=== PATIENT | female | born 1995 ===

== ENCOUNTER 2016-06-14 10:11 | Observation (INO) | payer MEDICAID ==
--- NOTE | 2016-06-14 11:39 | GHP ---
[f rep st] HISTORY AND PHYSICAL DATE OF ADMISSION: 06/14/2016 ADMITTING DIAGNOSES: 1. Intrauterine at 30 weeks. 2. Leakage of fluid. HISTORY OF PRESENT ILLNESS: Patient is a 20-year-old, 1, para 0, at 30 weeks with estimated due date 08/18/2016, by a first-trimester ultrasound at 7 1 /7 weeks per patient. The patient receives her care at [facility] , but is unhappy with her care and wants to transfer care to [place] and deliver here at [facility]. The patient presents with complaints of leakage of fluid. Yesterday morning, she noticed a gush of clear fluid, no odor and had trickling throughout the day. She did not notice anything at night, but when she woke up this morning, she felt a little damp. She is having some menstrual- type cramping. Denies any vaginal bleeding or spotting. Good movement noted. The patient states she had intercourse 3-4 days ago. She is currently being treated for an UTI. The patient has seen perinatology in this secondary to oligohydramnios that was diagnosed 1-2 weeks ago. The patient is to have twice weekly NSTs and a followup ultrasound. I do not have access to her records at this time. PROFESSIONAL SYSTEM ADMINISTRATOR HISTORY: Menstrual cycles are irregular. Denies any history of abnormal Pap smears, or any exposure to sexually transmitted diseases. OBSTETRIC HISTORY: Primiparous. PAST MEDICAL HISTORY: Unremarkable. SURGICAL HISTORY: In October 2015, she had a laparoscopic ovarian cystectomy. CURRENT MEDICATIONS: Keflex and vitamins. ALLERGIES: No known drug allergies. SOCIAL HISTORY: She is . Lives with her . Denies any alcohol, tobacco, or illicit drug use. FAMILY HISTORY: Noncontributory. PHYSICAL EXAMINATION: VITAL SIGNS: On admission, vital signs are stable. Temp 37.2, heart rate 86, and blood pressure 125/83. GENERAL: Well-nourished, well-developed female, alert and oriented x3, no apparent distress. ABDOMEN: Gravid, soft, nontender. EXTREMITIES: Normal to inspection without tenderness. No edema. PELVIC EXAM: AmniSure was collected. There was no pooling or gross rupture noted. Cervical check deferred. heart tones were Category I tracing with a baseline of 140 beats per minute. Positive accels. No decelerations. Moderate variability. On toco, there is some uterine irritability, but no contractions. ASSESSMENT: The patient is a 20-year-old, 1, para 0, at 30 weeks with estimated due date 08/18/16, who presents with complaints of leaking fluid, here to rule out rupture of membranes. PLAN: 1. Admit to Labor and Delivery for observation. 2. AmniSure sent, collected and sent. 3. Will obtain an ultrasound for growth and LEYLA check. 4. Discussed with patient if she wants to deliver here, she needs to transfer care. Patient given my information. She is to call my office tomorrow morning and set up an appointment for initial OB, and she is to sign a record release so we are able to get her records. /[id number]/MODL MTDD
== END 2016-06-14 14:00 | disposition home or self-care (01) ==
LOC: FLD 10:11
PROVIDERS: ADMIT Obstetrics & Gynecology; ATTEND Obstetrics & Gynecology
DX: O42.913 Preterm premature rupture of membranes, unspecified as to length of time between rupture and onset of labor, third trimester (principal); O08.83 Urinary tract infection following an ectopic and molar pregnancy; O41.03X0 Oligohydramnios, third trimester, not applicable or unspecified; Z3A.30 30 weeks gestation of pregnancy
CPT/HCPCS: 76815; G0378

== ENCOUNTER 2016-07-21 16:35 | Inpatient (IN) | payer MEDICAID ==
[2016-07-21] MEDS: LR 1,000 ML IV PRN ×2 (16:50→18:28)
[2016-07-21] MEDS ORDERED: OLIVE OIL 118 ML BTL MISC PRN (17:12)
[2016-07-21] MEDS ORDERED: EPSOM SALT 454 GM TP PRN (17:12)
[2016-07-21] MEDS ORDERED: OXYTOCIN/RINGERS LACTATE 1,000 ML IV PRN (17:12)
[2016-07-21] MEDS ORDERED: IBUPROFEN 600 MG TAB PO PRN (17:12)
[2016-07-21] MEDS ORDERED: TERBUTALINE SULFATE 1 MG/ML VIAL IV PRN (17:12)
[2016-07-21 17:46] LABS: % IMMATURE GRANULYOCYTES 1.6 % (0.0-1.1); ABSOLUTE IMMATURE GRANULOCYTES 0.21 10^3/uL (0.00-0.10); ADD DIFF? NO; ADD MORPH? NO; ADD SCAN? NO; ATYPICAL LYMPHOCYTE FLAG 10 (0-99); FRAGMENT RBC FLAG 0 (0-99); HEMATOCRIT 32.6 % (38.0-47.0); HEMOGLOBIN 10.5 g/dL (12.6-16.3); LEFT SHIFT FLG 20 (0-99); LIPEMIA HEMOLYSIS FLAG 80 (0-99); MEAN CELL HEMOGLOBIN 28.8 pg (27.9-34.1); MEAN CELL HEMOGLOBIN CONCENTR. 32.2 g/dL (32.4-36.7); MEAN CELL VOLUME 89.6 fL (81.5-99.8); MEAN PLATELET VOLUME 11.4 fL (8.7-11.7); PLATELET CLUMPS FLAG 0 (0-99); PLATELET COUNT 185 10^3/uL (150-400); RED BLOOD CELL COUNT 3.64 10^6/uL (4.18-5.33)
[2016-07-21] MEDS ORDERED: ACETAMINOPHEN 500 MG TAB PO PRN (19:32)
[2016-07-21] MEDS ORDERED: BETAMETHASONE IM SYRINGE IM ONE (19:32)
[2016-07-21] MEDS ORDERED: CALCIUM CARBONATE 500 MG CHEWABLE TAB PO PRN (19:33)
[2016-07-21] MEDS ORDERED: diphenhydrAMINE 25 MG CAP PO PRN (19:34)
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
[2016-07-21] MEDS ORDERED: IRON POLYSAC/IRON HEME 28 MG TAB PO SCH (19:45)
[2016-07-22] MEDS ORDERED: PRENATAL VIT 1 EACH TAB PO SCH (08:00)
--- NOTE | 2016-07-22 09:37 | OBPROG ---
OBG Labor Progress Note Assessment/Plan: Assessment: IUP at 36w1d with low fluid but improved today on U/S borderline growth - getting NSTs 2/wk Plan: d/C home and RTC later this week 07/22/16 09:34 Subjective: Doing well. Happy with U/S findings - good FM. No ctxns, no bld Objective: 07/21/16 16:50 Patient ABO/Rh AB POSITIVE 07/21/16 16:50 Vick Current Contraction Pattern: Other (Specify) (none) FHR (bpm): 130 FHR Pattern Variability: Moderate FHR Category: 1 Membranes: Intact Oxytocin Orders Assessment - Pre-Induction/Augmentation Assessment Gestational Age: 36 week(s) and 0 day(s) ICD10 Worksheet Patient Problems: Problems Problem Status Onset Oligohydramnios in third trimester Acute Third trimester Acute
== END 2016-07-22 10:30 | disposition home or self-care (01) | DRG 782 ==
LOC: FLD 16:35 → OBSVTOIN 17:12
PROVIDERS: ADMIT Obstetrics & Gynecology; ATTEND Obstetrics & Gynecology
DX: O41.03X0 Oligohydramnios, third trimester, not applicable or unspecified (principal); Z3A.36 36 weeks gestation of pregnancy
CPT/HCPCS: J0702

== ENCOUNTER 2016-07-29 22:01 | Inpatient (IN) | payer MEDICAID ==
[2016-07-29] MEDS ORDERED: LR 1,000 ML IV PRN (22:45)
[2016-07-29] MEDS ORDERED: EPSOM SALT 454 GM TP PRN (22:45)
[2016-07-29] MEDS ORDERED: IBUPROFEN 600 MG TAB PO PRN (22:45)
[2016-07-29] MEDS ORDERED: OXYTOCIN/RINGERS LACTATE 1,000 ML IV PRN (22:45)
[2016-07-29] MEDS ORDERED: TERBUTALINE SULFATE 1 MG/ML VIAL IV PRN (22:45)
[2016-07-29] MEDS ORDERED: OLIVE OIL 118 ML BTL MISC PRN (22:45)
[2016-07-29] MEDS ORDERED: ZOLPIDEM TARTRATE 5 MG TAB PO PRN (22:47)
[2016-07-29] MEDS ORDERED: LR 1,000 ML IV SCH (23:45)
[2016-07-29] MEDS ORDERED: TERBUTALINE SULFATE 1 MG/ML VIAL ONE (23:50)
[2016-07-29] MEDS ORDERED: CITRIC ACID/SODIUM CITRATE 30 ML UDCUP PO ONE (23:58)
[2016-07-29] MEDS ORDERED: LR 500 ML IV ONE (23:58)
[2016-07-29] MEDS ORDERED: ceFAZolin 2 GM/DEXTROSE 100 ML IV ONE (23:58)
--- NOTE | 2016-07-30 00:07 | OBPROG ---
OBG Labor Progress Note Assessment/Plan: Assessment: Pt is 21 y/o @ 37 2/7 wks who presents with ctx's and intolerance to labor-recurrent late decels Plan: Discussed with pt that with recurrent late decels and remote from delivery will proceed with PCS secondary to intol to labor Surgical consents obtained; R/B/A reviewed with pt including but not limited to bleeding, infection and damage to surrounding organs Pt understands all risks and wants to proceed with surgery-c/s at this time Abx web content & social media manager to OR SCDs for DVT prophylaxis 07/30/16 00:04 Vick Current Contraction Pattern: Regular FHR (bpm): 140 FHR Pattern Variability: Moderate FHR Category: 2 (recurrent late decels) Membranes: Intact Oxytocin Orders Assessment - Pre-Induction/Augmentation Assessment Gestational Age: 37 week(s) and 1 day(s) ICD10 Worksheet Patient Problems: Problems Problem Status Onset intolerance to labor, delivered, current hospitalization Acute Status post primary low transverse section Acute Oligohydramnios in third trimester Acute Third trimester Acute - ICD10 Problem Qualifiers (1) intolerance to labor, delivered, current hospitalization (2) Status post primary low transverse section
[2016-07-30] MEDS ORDERED: fentaNYL 100 MCG/2 ML INJ ONE (00:08)
[2016-07-30] MEDS ORDERED: morphINE PF 5 MG/10 ML INJ ONE (00:09)
[2016-07-30 00:12] LABS: % IMMATURE GRANULYOCYTES 0.9 % (0.0-1.1); ABSOLUTE IMMATURE GRANULOCYTES 0.13 10^3/uL (0.00-0.10); ADD DIFF? NO; ADD MORPH? NO; ADD SCAN? NO; ATYPICAL LYMPHOCYTE FLAG 0 (0-99); FRAGMENT RBC FLAG 0 (0-99); HEMATOCRIT 30.1 % (38.0-47.0); HEMOGLOBIN 9.8 g/dL (12.6-16.3); LEFT SHIFT FLG 10 (0-99); LIPEMIA HEMOLYSIS FLAG 80 (0-99); MEAN CELL HEMOGLOBIN 28.8 pg (27.9-34.1); MEAN CELL HEMOGLOBIN CONCENTR. 32.6 g/dL (32.4-36.7); MEAN CELL VOLUME 88.5 fL (81.5-99.8); MEAN PLATELET VOLUME 11.3 fL (8.7-11.7); PLATELET CLUMPS FLAG 0 (0-99); PLATELET COUNT 198 10^3/uL (150-400); RED CELL DISTRIBUTION WIDTH 16.3 % (11.5-15.2)
[2016-07-30] MEDS ORDERED: OXYTOCIN 10 UNIT/ML VIAL ONE (00:14)
[2016-07-30] MEDS ORDERED: MISOPROSTOL 200 MCG TAB ONE ×2 (00:14→00:55)
[2016-07-30] MEDS ORDERED: PROPOFOL/EMULSION 500 MG/50 ML BOTTLE IV ONE ×3 (00:54→01:25)
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
[2016-07-30] MEDS ORDERED: fentaNYL 250 MCG/5 ML INJ ONE (01:04)
[2016-07-30] MEDS ORDERED: MIDAZOLAM 2 MG/2 ML VIAL ONE (01:14)
[2016-07-30] MEDS ORDERED: PROPOFOL 200 MG/20 ML VIAL ONE (01:45)
[2016-07-30] MEDS ORDERED: SIMETHICONE 80 MG TAB CHEW PO PRN (02:16)
[2016-07-30] MEDS ORDERED: MAGNESIUM HYDROXIDE 30 ML UDCUP PO PRN (02:16)
[2016-07-30] MEDS ORDERED: PROMETHAZINE HCL 25 MG/ML INJ IVP PRN (02:16)
[2016-07-30] MEDS ORDERED: LACTULOSE 20 GM/30 ML UDCUP PO PRN (02:16)
[2016-07-30] MEDS ORDERED: BISACODYL 10 MG SUPP PR PRN (02:16)
[2016-07-30] MEDS ORDERED: POLYETHYLENE GLYCOL 3350 17 GM PKT PO PRN (02:16)
[2016-07-30] MEDS ORDERED: HYDROmorphONE/DILAUDID 6 MG/30 ML PCA IV PRN (02:19)
[2016-07-30] MEDS ORDERED: diphenhydrAMINE 25 MG CAP PO PRN (02:19)
[2016-07-30] MEDS ORDERED: NALOXONE HCL 0.4 MG/ML INJ IVP PRN ×3 (02:19→02:43)
--- NOTE | 2016-07-30 02:24 | OBDEL ---
Info Type: Primary GBS+: Yes (in urine) Antibiotic Used for + GBS: Ampicillin (Pt was not treated for +GBS, no labor) Number of Antibiotic Doses Given: 0 Indications for Delivery: Spontaneous Labor ( intolerance to labor-Cat II strip with recurrent late decels) Vaginal Delivery - Labor and Delivery Onset of Contractions Date: 07/29/16 Onset of Contractions Time: 18:00 Cord Gases: Cord Gases Cord Blood PCO2 TNP 07/30/16 01:20 Cord Base Excess TNP 07/30/16 01:20 Cord ABG pH TNP 07/30/16 01:20 Cord VBG pH 7.20 (7.20-7.42) 07/30/16 01:20 Operative Report - Delivery Pre-op Diagnoses: IUP @ 31 1/7 wks with Cat II strip with recurrent late decels Post-op Diagnoses: IUP @ 37 1/7 wks with Cat II strip with recurrent late decels Nulliparous Prior to Delivery: Yes Presentation at Delivery: Vertex Procedure: Low Transverse Surgeon: Jesica Lala Zoology Technical Officer: Janna Gilman Anesthesiologist: Dago Powell Steam Blocker/MARBLE MASON: Lilia Siddiqui L&D Analgesia/Anesthesia Type: General Complications: Other (Specify) (Bloody amniotic fluid, ?abruption) Findings: Bloody amniotic fluid; grossly normal appearing uterus, tubes and ovaries. Placenta ?abruption with 3-vc, sent to pathology. Specimen(s)/Path: Placenta IV Fluid (ml): 1,700 EBL: 1,000 cc UO: 200 cc clear urine Drains: Other (Specify) (None) Cord Gases: Cord Gases Cord Blood PCO2 TNP 07/30/16 01:20 Cord Base Excess TNP 07/30/16 01:20 Cord ABG pH TNP 07/30/16 01:20 Cord VBG pH 7.20 (7.20-7.42) 07/30/16 01:20 Data Vick Delivery Date: 07/30/16 Delivery Time: 01:06 RAIZA: 08/19/16 Gestational Age: 37 week(s) and 1 day(s) Sex of : Female Score (1 Min): 1 Score (5 Min): 8 Score (10 Min): 9 ICD10 Worksheet Patient Problems: Problems Problem Status Onset intolerance to labor, delivered, current hospitalization Acute Status post primary low transverse section Acute Oligohydramnios in third trimester Acute Third trimester Acute - ICD10 Problem Qualifiers (1) intolerance to labor, delivered, current hospitalization (2) Status post primary low transverse section
[2016-07-30] MEDS ORDERED: METOCLOPRAMIDE 10 MG/2 ML VIAL IVP PRN (02:35)
[2016-07-30] MEDS ORDERED: fentaNYL 100 MCG/2 ML INJ IVP PRN (02:35)
[2016-07-30] MEDS ORDERED: MEPERIDINE 25 MG/ML SYR IVP PRN (02:35)
[2016-07-30] MEDS ORDERED: HYDROmorphONE/DILAUDID 1 MG/ML SYR IVP PRN (02:35)
[2016-07-30] MEDS ORDERED: HYDROCODONE/APAP 5/325 TAB PO PRN (02:35)
--- NOTE | 2016-07-30 02:40 | POSTANESTH ---
Post Anesthetic Evaluation Cardiovascular Status: Similar to Pre-Op Cond Respiratory Status: Similar to Pre-op Cond. Level of Consciousness/Mental Status: Can Participate in Eval, Alert and Oriented Pain Control: Adequate, Prn Tx Ordered Nausea/Vomiting Control: Adequate, Prn Tx Ordered Complications Possibly Related to Anesthesia: None Noted (Appears to be recovering well from GA but will need close monitoring due to pre-existing morbid obesity and likely sleep apnea and possible maternal history of MH.)
[2016-07-30] MEDS ORDERED: KETOROLAC 30 MG/1 ML SDV IVP ONE (02:42)
[2016-07-30] MEDS ORDERED: KETOROLAC 30 MG/1 ML SDV ONE (02:43)
[2016-07-30] MEDS ORDERED: OXYTOCIN 100 UNITS/10 ML VIAL ONE (03:07)
[2016-07-30] MEDS ORDERED: PHENYLEPHRINE 10 MG/ML SDV ONE (03:07)
[2016-07-30] MEDS ORDERED: SUGAMMADEX SODIUM 200 MG/2 ML VIAL IVP ONE (03:07)
[2016-07-30] MEDS ORDERED: BUPIVACAINE/DEXTROSE 7.5MG/ML 2 ML SPINAL AMP SP ONE (03:07)
[2016-07-30] MEDS ORDERED: DEXAMETHASONE 4 MG/ML VIAL ONE (03:09)
--- NOTE | 2016-07-30 10:47 | GOP ---
[f rep st] OPERATIVE REPORT DATE OF OPERATION: 07/30/2016 SURGEON: Jesica Lala DO FISH CUTTER: SAURABH Valero. ANESTHESIA: General. Spinal attempted multiple times. ANESTHESIOLOGIST: Dago Powlel MD. PREOPERATIVE DIAGNOSIS: Intrauterine at 37 and 1/7 weeks with category 2 strip with recurrent late decelerations, remote from delivery. POSTOPERATIVE DIAGNOSIS: Intrauterine at 37 and 1/7 weeks with category 2 strip with recurrent late decelerations, remote from delivery. PROCEDURE PERFORMED: A primary low transverse section. FINDINGS: Bloody amniotic fluid was noted. Grossly normal-appearing uterus, tubes, and ovaries. Placenta with questionable abruption, with three-vessel cord sent to pathology. A viable female with Apgars of 1, 7, and 9, and a cord venous pH of 7.20. ESTIMATED BLOOD LOSS: 1000 cc. INDICATION FOR PROCEDURE: Patient is a 21-year-old, 1, para 0, at 37 and 1 weeks who presents to Labor and Delivery with painful contractions. She was examined and found to be 1-2 cm, 50% effaced, -2 station. On the monitor, there was noted to be recurrent late decelerations. The was given an IV and resuscitation was performed. She continued to have late deceleration with each contraction. She was given Terb x 1 and then had a prolonged deceleration with alexis down to 80bpm for 6-7 minutes. Patient is remote from delivery. We discussed with these decelerations that we would proceed to the operating room for a . Risks, benefits, alternatives of the procedure were reviewed with the patient. Patient signed consents, and understand all risks at this time, and wants to proceed to surgery. DESCRIPTION OF PROCEDURE: The patient was taken to the operating room where a spinal anesthetic was attempted multiple times and unsuccessful. Patient was then given general anesthesia. She was prepped and draped in sterile fashion, placed in supine position with a tilt. At this time, transverse skin incision was then made with a scalpel, and the incision was carried down to the underlying layer of fascia with the scalpel. The fascia was incised at the midline. Fascial incision was extended laterally with Whitley scissors. Superior aspect of the fascial incision was grasped with Avelino clamps, elevated, and rectus muscles dissected off sharply. In a similar fashion, the inferior aspect of the fascial incision was grasped with Avelino clamps, elevated, and the rectus muscles dissected off sharply. Rectus muscles were in the midline. Peritoneum was entered bluntly. Peritoneal incision was extended superiorly and inferiorly with good visualization of bladder. Uterus was then incised with a knife. At this time, there was noted to be a large amount of dark, red fluid upon entering the uterine cavity. The incision was then extended anteriorly and posteriorly. was delivered atraumatically in a vertex position. Cord was clamped and cut. The was handed off to waiting nurse practitioner. Cord blood gases as well as cord blood were sent. Placenta was removed spontaneously intact. There was a questionable abruption, it was sent to Pathology. Uterus was then exteriorized, cleared of all clots and debris. Uterine incision was repaired with 0 Vicryl in a running, locked fashion. Second imbricating layer of suture was performed with 0 Vicryl. Good hemostasis was obtained. Initially upon closing the hysterotomy, the uterus was atonic and the patient had received IV Pitocin. The patient was then given Cytotec 800 mcg rectally. We looked again at the uterine incision. There was noted to be some oozing, and [id number] stitches of O-vicryl x2 was used and hemostasis was achieved. Uterus was then returned to the abdomen. Gutters were cleared of all clots and debris. Reinspection of the uterine incision again appeared hemostatic. Raoul was placed on uterine incision for further hemostasis. Rectus muscles were then approximated with 2-0 Vicryl in an inverted mattress fashion. The fascia was then closed with 0 Vicryl in a running fashion. Subcutaneous was closed in one layer using 2-0 Vicryl, and the skin was then closed with 4-0 Vicryl on a Manish needle. Patient tolerated the procedure well. No complications. Sponge, lap, needle instrument counts were correct x2. Patient was then awakened and sent to recovery room in good condition. INTRAVENOUS FLUIDS: 1700 cc of LR. URINE OUTPUT: 200 cc of clear urine. /[id number]/MODL MTDD
[2016-07-30] MEDS: KETOROLAC 30 MG/1 ML SDV IVP PRN ×2 (15:31→21:36)
[2016-07-30] MEDS: DOCUSATE SODIUM 100 MG CAP PO PRN (15:32)
[2016-07-30] MEDS: HYDROCODONE/APAP 5/325 TAB PO PRN ×4 (15:33→23:30)
[2016-07-30] MEDS: SENNOSIDES/DOCUSATE SODIUM TAB PO SCH ×2 (19:24→21:36)
--- NOTE | 2016-07-30 20:04 | OBPP ---
Progress Note Assessment/Plan: Assessment:ff2U SCANT RUBRA CRISA DENIES QUESTIONS ENCOURGED TO CHANGE POSITIONS IN BED anemic quigley draining copious amounts of urine Plan:po day 1 expectant management, iron ordered 07/30/16 20:04 Subjective: Doing well. incision clean dry bandage in place pain well managed some mobility with assistance well vs wnl Objective: 07/29/16 23:59 Patient ABO/Rh AB POSITIVE 07/29/16 23:59 Temp Pulse Resp BP Pulse Ox 36.6 C 84 16 116/73 94 07/30/16 15:48 07/30/16 15:48 07/30/16 15:48 07/30/16 15:48 07/30/16 15:48 Uterine Position/Fundal Height: At Umbilicus Uterine Tone: Firm Physical Exam - Physical Exam General Appearance: WD/WN, alert, no apparent distress Respiratory: chest non-tender, lungs clear, normal breath sounds Cardiac/Chest: regular rate, rhythm Abdomen: hypoactive bowel sounds Extremities: normal range of motion, Sharon's sign (negative bilaterally) DTR- Lower Extremities: Knee (R): 1+, Knee (L): 1+ (no clonus) Skin: normal color, warm/dry Neuro/Psych: no motor/sensory deficits, alert, normal mood/affect, oriented x 3
[2016-07-30] MEDS: IRON POLYSAC/IRON HEME 28 MG TAB PO SCH (21:35)
[2016-07-31] MEDS: HYDROCODONE/APAP 5/325 TAB PO PRN ×4 (03:26→23:02)
[2016-07-31] MEDS: KETOROLAC 30 MG/1 ML SDV IVP PRN (03:27)
[2016-07-31] MEDS: IRON POLYSAC/IRON HEME 28 MG TAB PO SCH ×2 (08:16→21:49)
[2016-07-31] MEDS: DOCUSATE SODIUM 100 MG CAP PO PRN (08:16)
--- NOTE | 2016-07-31 08:30 | OBPP ---
Progress Note Assessment/Plan: Assessment: 1) s/p 1LTCS secondary to intol to labor, Cat II strip POD # 1 - pt is stable 2) Anemia - pt is asymptomatic Plan: Continue routine pp care Encourage ambulation Pt may shower today Cont iron/colace Plan for d/c home in 24-48 hrs 07/31/16 08:27 Subjective: Pt seen and examined. Feeling better. No complaints at this time. Pain is well controlled with [place] and Motrin. Pt is OOB, nandini regular diet, voiding without difficulty and passing flatus. Denies any f/c/n/v/CP or SOB. Moderate lochia. BF with some difficulty with baby girl latching. Objective: 07/31/16 03:10 Patient ABO/Rh AB POSITIVE 07/29/16 23:59 Temp Pulse Resp BP Pulse Ox 37.2 C 86 16 106/63 94 07/31/16 03:53 07/31/16 03:53 07/31/16 03:53 07/31/16 03:53 07/31/16 00:11 Uterine Position/Fundal Height: Umbilicus -2 Uterine Tone: Firm Physical Exam - Physical Exam General Appearance: WD/WN, alert, severe distress Respiratory: lungs clear, normal breath sounds Cardiac/Chest: regular rate, rhythm Abdomen: normal bowel sounds, non-tender, soft, flatus (+), incision (C/D/I , well approximated) Extremities: non-tender, normal inspection Skin: normal color, warm/dry Neuro/Psych: alert, normal mood/affect, oriented x 3
[2016-07-31] MEDS: IBUPROFEN 600 MG TAB PO PRN ×2 (12:23→21:49)
[2016-07-31] MEDS: SENNOSIDES/DOCUSATE SODIUM TAB PO SCH ×2 (12:23→21:49)
[2016-08-01] MEDS: IBUPROFEN 600 MG TAB PO PRN ×3 (05:00→19:09)
[2016-08-01] MEDS: IRON POLYSAC/IRON HEME 28 MG TAB PO SCH ×2 (09:06→19:09)
[2016-08-01] MEDS: DOCUSATE SODIUM 100 MG CAP PO PRN ×2 (09:06→19:09)
[2016-08-01] MEDS: SENNOSIDES/DOCUSATE SODIUM TAB PO SCH ×2 (09:06→19:09)
--- NOTE | 2016-08-01 09:23 | OBPP ---
Progress Note Assessment/Plan: Assessment:pain well managed well scant rubra lochia ff@u passing gas voiding without difficulty incision well approximated ambulating without difficulty dizziness in the shower yesterday discussed why this occured Plan:po day 2 expectant management, iron ordered 07/30/16 20:04 08/01/16 09:20 Subjective: Doing well denies pain. Soreness with . Dizziness when taking a shower. Discussed why this is occuring, ways to assist Objective: 07/31/16 03:10 Patient ABO/Rh AB POSITIVE 07/29/16 23:59 Temp Pulse Resp BP Pulse Ox 36.8 C 90 18 110/68 97 08/01/16 09:17 08/01/16 09:17 08/01/16 09:17 08/01/16 09:17 08/01/16 09:17 Uterine Position/Fundal Height: At Umbilicus Uterine Tone: Firm Physical Exam - Physical Exam General Appearance: WD/WN, alert, no apparent distress Neck: full range of motion Respiratory: chest non-tender, lungs clear, normal breath sounds Cardiac/Chest: regular rate, rhythm Abdomen: normal bowel sounds Extremities: normal range of motion, Sharon's sign (negative bilaterally) DTR- Lower Extremities: Knee (R): 1+, Knee (L): 1+ (no clonus bilaterally) Skin: normal color Neuro/Psych: no motor/sensory deficits, alert, normal mood/affect, oriented x 3
[2016-08-01] MEDS: HYDROCODONE/APAP 5/325 TAB PO PRN ×3 (11:44→23:04)
[2016-08-02] MEDS: IBUPROFEN 600 MG TAB PO PRN ×2 (01:10→07:51)
[2016-08-02] MEDS: HYDROCODONE/APAP 5/325 TAB PO PRN (06:35)
[2016-08-02 09:27] VITALS: BP 123/79; PULSE 83; RESP 16; TEMP 98.7; O2SAT 98
--- NOTE | 2016-08-02 12:24 | OBPP ---
Progress Note Assessment/Plan: Assessment: 1) s/p 1LTCS secondary to intol to labor, Cat II strip POD # 3 - pt is stable 2) Anemia - pt is asymptomatic Plan: Plan for d/c home today Instructions reviewed with pt Rx given for [place], Motrin and iron Cont PNV and colace Pelvic rest Lifting restrictions RTC in 2,4 and 6 weeks for pp visit. 08/02/16 12:21 Subjective: Pt seen and examined. Doing well with no complaints. Pain is well controlled. Pt is OOB, nandini regular diet, voiding without difficulty and passing flatus. BM x 3. BF without difficulty. Denies any f/c/n/v/CP or SOB. Wants to go home today. Objective: 07/31/16 03:10 Patient ABO/Rh AB POSITIVE 07/29/16 23:59 Temp Pulse Resp BP Pulse Ox 37.1 C 83 16 123/79 H 98 08/02/16 08:00 08/02/16 08:00 08/02/16 08:00 08/02/16 08:00 08/02/16 08:00 Uterine Position/Fundal Height: Umbilicus -2 Uterine Tone: Firm Physical Exam - Physical Exam General Appearance: WD/WN, alert, no apparent distress Respiratory: lungs clear, normal breath sounds Cardiac/Chest: regular rate, rhythm Abdomen: normal bowel sounds, non-tender, soft, flatus (+), incision (C/D/I, well approximated) Extremities: non-tender, normal inspection Skin: normal color, warm/dry Neuro/Psych: alert, normal mood/affect, oriented x 3
--- NOTE | 2016-08-02 12:28 | OBGCSDC ---
General Delivery Information - General Info : 1 Para: 1 Delivery Physician/CNM: Jesica Lala Furniture Removalist: Janna Gilman Admission Date: 07/30/16 Labs: Patient ABO/Rh AB POSITIVE 07/29/16 23:59 Hct 21.2 % (38.0-47.0) L D 07/31/16 03:10 Vaginal - Diagnosis Presentation at Delivery: Vertex - Operations/Procedures L&D Analgesia/Anesthesia Type: General - Delivery Number of Prior Sections: 0 Indications for Current Section: Non-reas. Status, Other (Specify ) (remote from delivery) Type: Primary Surgical Procedures: Low Transverse Intra-op Complications: None EBL: 1000 cc L&D Analgesia/Anesthesia Type: General - Hospital Course : Uncomplicated. Pain is well controlled. Mild lochia. BM x 3. BF without difficulty. [place] [facility] Delivery Date: 07/30/16 Delivery Time: 01:16 RAIZA: 08/18/16 Gestational Age: 37 week(s) and 5 day(s) Sex of : Female Weight (gm): 2644 g Score (1 Min): 1 Score (5 Min): 7 Score (10 Min): 9 Discharge Information - Discharge Information Discharge Medications: Iron, Ibuprofen, Vitamins, Other (Specify) ( [place]) Condition: Good Instruction/Follow Up: Two Weeks, Four Weeks, Six Weeks Discharge Physician/CNM: Jesica Lala
[2016-08-02] MEDS: IRON POLYSAC/IRON HEME 28 MG TAB PO SCH (13:00)
[2016-08-02] MEDS: SENNOSIDES/DOCUSATE SODIUM TAB PO SCH (13:00)
== END 2016-08-02 14:20 | disposition home or self-care (01) | DRG 765 ==
LOC: FLD 22:01 → OBSVTOIN 22:01 → FLD 07-30 02:46 → FOB 07-30 05:38
PROVIDERS: ADMIT Obstetrics & Gynecology; ATTEND Obstetrics & Gynecology
PROC: 10D00Z1 Extraction of Products of Conception, Low, Open Approach (ICD-10-PCS; principal; 2016-07-29)
DX: O76 Abnormality in fetal heart rate and rhythm complicating labor and delivery (principal); O99.03 Anemia complicating the puerperium; O10.913 Unspecified pre-existing hypertension complicating pregnancy, third trimester; O99.820 Streptococcus B carrier state complicating pregnancy; Z3A.37 37 weeks gestation of pregnancy; Z37.0 Single live birth
CPT/HCPCS: J0690; J1100; J1170; J1885; J2250; J2274; J2370; J2590; J2704; J3010; J3105